=== PATIENT | female | born 1945 | race Caucasian/White ===

== ENCOUNTER 2021-04-23 13:46 | Outpatient (CLI) | payer MEDICARE, OTHER | END 2021-04-23 13:47 | disposition home or self-care (01) | LOC: CSHMAMMO 13:46 | PROVIDERS: ATTEND Internal Medicine | DX: Z12.31 Encounter for screening mammogram for malignant neoplasm of breast (principal) | CPT/HCPCS: 77063; 77067 ==

== ENCOUNTER 2022-04-24 10:43 | Outpatient (CLI) | payer MEDICARE, OTHER | END 2022-04-24 10:44 | disposition home or self-care (01) | LOC: CSHMAMMO 10:43 | PROVIDERS: ATTEND Internal Medicine | DX: Z12.31 Encounter for screening mammogram for malignant neoplasm of breast (principal) | CPT/HCPCS: 77063; 77067 ==

== ENCOUNTER 2023-03-11 10:44 | Outpatient (CLI) | payer MEDICARE, OTHER | END 2023-03-11 10:45 | disposition home or self-care (01) | LOC: CSHRAD 10:44 | PROVIDERS: ATTEND Internal Medicine Rheumatology | DX: M16.11 Unilateral primary osteoarthritis, right hip (principal); M17.11 Unilateral primary osteoarthritis, right knee ==

== ENCOUNTER 2023-06-05 09:47 | Outpatient (CLI) | payer MEDICARE, OTHER | END 2023-06-05 09:48 | disposition home or self-care (01) | LOC: CSHMAMMO 09:47 | PROVIDERS: ATTEND Internal Medicine | DX: Z12.31 Encounter for screening mammogram for malignant neoplasm of breast (principal) | CPT/HCPCS: 77063; 77067 ==

== ENCOUNTER 2024-04-07 13:43 | Outpatient (CLI) | payer MEDICARE, OTHER | END 2024-04-07 13:44 | disposition home or self-care (01) | LOC: CSHRAD 13:43 | PROVIDERS: ATTEND Internal Medicine Rheumatology | DX: M05.79 Rheumatoid arthritis with rheumatoid factor of multiple sites without organ or systems involvement (principal); M19.011 Primary osteoarthritis, right shoulder ==

== ENCOUNTER 2024-06-06 10:14 | Outpatient (CLI) | payer MEDICARE, OTHER | END 2024-06-06 10:15 | disposition home or self-care (01) | LOC: CSHMAMMO 10:14 | PROVIDERS: ATTEND Internal Medicine | DX: Z12.31 Encounter for screening mammogram for malignant neoplasm of breast (principal) | CPT/HCPCS: 77063; 77067 ==

== ENCOUNTER 2024-12-26 05:28 | Emergency (ER) | payer MEDICARE, OTHER | END 2024-12-26 06:51 | disposition home or self-care (01) | LOC: CSHERS 05:28 | DX: H65.191 Other acute nonsuppurative otitis media, right ear (principal); E11.9 Type 2 diabetes mellitus without complications; I25.10 Atherosclerotic heart disease of native coronary artery without angina pectoris | CPT/HCPCS: 99282 ==